=== PATIENT | female | born 1960 | race Caucasian/White ===

== ENCOUNTER → 2018-04-14 08:37 | Outpatient (CLI) | payer OTHER, SELFPAY ==
--- NOTE | 2018-04-14 | DI.MG.S_ITS ---
BILATERAL DIGITAL SCREENING MAMMOGRAM 3D/2D WITH CAD: 04/14/2018 CLINICAL: Routine screening. Comparison is made to exams dated: 04/14/2016 mammogram, 05/01/2015 mammogram, and 03/25/2011 mammogram - [facility]. The tissue of both breasts is heterogeneously dense. This may lower the sensitivity of mammography. Current study was also evaluated with a Computer Aided Detection (CAD) system. There is a focal asymmetry in the right breast central to the nipple anterior depth. No other significant masses, calcifications, or other findings are seen in either breast. IMPRESSION: INCOMPLETE: NEEDS ADDITIONAL IMAGING EVALUATION The focal asymmetry in the right breast is indeterminate. Additional views with possible ultrasound are recommended. This exam was interpreted at Station ID: [id number]. NOTE: For mammograms, a report in lay terms will be sent to the patient. Approximately 15% of breast malignancies will not be visualized mammographically. In the management of a palpable breast mass, a negative mammogram must not discourage biopsy of a clinically suspicious lesion. Electronically Signed By: Cristy pedroza/ana:04/16/2018 07:59:10 letter sent: Additional Imaging Needed ACR BI-RADS Category 0: Incomplete [id number]
== END ==
PROVIDERS: Family Provider Family Medicine; PCP Family Medicine; Visit Provider Family Medicine
DX: Z12.31 Encounter for screening mammogram for malignant neoplasm of breast (principal)
CPT/HCPCS: 77063; 77067

== ENCOUNTER → 2018-07-18 13:55 | Outpatient (CLI) | payer OTHER, SELFPAY ==
--- NOTE | 2018-07-18 | DI.MG.S_ITS ---
UNILATERAL RIGHT DIGITAL DIAGNOSTIC MAMMOGRAM 3D/2D WITH ADDITIONAL VIEWS: 07/18/2018 CLINICAL: Additional evaluation requested from prior study. Comparison is made to exams dated: 04/14/2018 mammogram, 04/14/2016 mammogram, and 05/01/2015 mammogram - Located [facility]. The tissue of right breast is heterogeneously dense. This may lower the sensitivity of mammography. Previously noted focal asymmetry in the right breast central to the nipple anterior depth on comparison screening mammogram resolves with additional views and likely represented superimposition of benign anatomic tissues. IMPRESSION: INCOMPLETE: NEEDS ADDITIONAL IMAGING EVALUATION Previously noted focal asymmetry in the right breast central to the nipple anterior depth on comparison screening mammogram resolves with additional views and likely represented superimposition of benign anatomic tissues. A targeted ultrasound is recommended and will be performed immediately following this exam. This exam was interpreted at Station ID: [id number]. NOTE: For mammograms, a report in lay terms will be sent to the patient. Approximately 15% of breast malignancies will not be visualized mammographically. In the management of a palpable breast mass, a negative mammogram must not discourage biopsy of a clinically suspicious lesion. Electronically Signed By: Chan Dixon M.D. ecl/:07/18/2018 14:59:47 letter sent: Additional Imaging Needed ACR BI-RADS Category 0: Incomplete [id number]
--- NOTE | 2018-07-18 | DI.US.S_ITS ---
LIMITED ULTRASOUND OF RIGHT BREAST: 07/18/2018 CLINICAL: Patient returns today to evaluate a density in the right breast. Comparison is made to exams dated: 07/18/2018 mammogram, 04/14/2018 mammogram, 04/14/2016 mammogram, 05/01/2015 mammogram, 03/25/2011 mammogram, and 06/24/2008 mammogram - [facility]. Color flow and real-time ultrasound of the right breast retroareolar were performed. Guzman scale images of the real-time examination were reviewed. No underlying breast mass or abnormality is identified. There is no ultrasound correlate for the previously noted focal asymmetry in the right breast central to the nipple anterior depth on comparison screening mammograms, which also resolved on additional diagnostic mammogram views performed earlier today. IMPRESSION: NEGATIVE There is no sonographic evidence of malignancy in the imaged portions of the right breast. Return to annual screening mammography is recommended. The patient is advised to monitor her breasts and to return sooner for re-evaluation should she feel anything grow or change. This exam was interpreted at Station ID: [id number]. Electronically Signed By: Chan Dixon M.D. ecl/:07/18/2018 15:01:11 letter sent: Normal Exam Ultrasound BI-RADS: 1 Negative
== END ==
PROVIDERS: Family Provider Family Medicine; PCP Family Medicine; Visit Provider Family Medicine
DX: R92.8 Other abnormal and inconclusive findings on diagnostic imaging of breast (principal)
CPT/HCPCS: 76642; 77065; G0279